=== PATIENT | female | born 1945 | race Caucasian/White ===

== ENCOUNTER → 2016-05-20 | Outpatient (CLI) | payer MEDICARE, BC ==
--- NOTE | 2016-05-20 19:10 | RADRPT ---
PROCEDURE: Right knee radiographs. CLINICAL INDICATION: Right knee pain. TECHNIQUE: Three views. Weight bearing. Frontal, lateral, and patellar view. COMPARISON: No prior studies are available for comparison. FINDINGS: There is no fracture or dislocation. There is anterior soft tissue swelling. There is no joint effusion. The articular surfaces are intact. There is no lytic or blastic lesion. There is no radiopaque foreign body. IMPRESSION: 1. Anterior soft tissue swelling. 2. No joint effusion. 3. Otherwise normal images of the right knee. RPTAT: QQ .Iglesia Chavez MD, Date Time Electronically viewed and signed by .Iglesia Chavez MD, on 05/20/2016 19:10 .R/
--- NOTE | 2016-05-25 07:13 | HKNOTE ---
DATE OF SERVICE: 05/20/2016 REFERRING PHYSICIAN: Dr. Chetan Redd, [address], [address], [place] [address]. MAIN COMPLAINT: Pain in the right knee. HISTORY OF MAIN COMPLAINT: The patient is a 71-year-old female complains of pain in her right knee which started after she slipped on a slippery surface in [facility] about 4 weeks ago. She was able to get up and walk, but she had pain and swelling in the knee. For a few days after the fall, she actually got a little bit worse and since then, she has improved. At first, she is not able to bear full weight on the leg. PRESENT COMPLAINTS: Right knee: Pain is over the lateral aspect of the right knee. Pain is descri bed as being moderate but seems to be getting better. Pain is aggravated by walking, weightbearing and stair climbing. The knee feels as if it won't straighten all the way but is not unstable and do es not lock. She does get rest pain and night pain. She takes Advil for the pain. Her main relief is just simply by not putting weight on her leg. She does have a history of problems with her lowe r back. She has no numbness or tingling in her legs. She walks without a walking aid. She is not limping at present; however, she was limping at first. Her leg lengths are equal. She does not hav e a shoe lift. She can clip her toenails and tie her shoelaces. SPORTING ACTIVITIES: Normally walking and dancing (especially dancing). PAST ORTHOPEDIC HISTORY: None. PREVIOUS ORTHOPEDIC OPERATIONS: None. PRIOR CORTISONE INTAKE: None. ALCOHOL INTAKE: None. OTHER JOINT PROBLEMS: None. BLOOD TEST FOR ARTHRITIS: None. PRIOR INJURIES TO HIPS OR KNEES: None. WORK STATUS: Patient is retired. PAST MEDICAL HISTORY: 1. Hypothyroid. 2. Hypercholesterolemia. 3. Osteoporosis. PAST SURGICAL HISTORY: Negative. ALLERGIES: NONE. MEDICATIONS 1. Synthroid 0.05 mcg per day. 2. Lovastatin 20 mg once a day. 3. Calcium with vitamin D once a day. FAMILY HISTORY: Both parents of cancer at unstated ages. SYSTEMS REVIEW: Prone to skipping heartbeats, excess night urination, and chronic diarrhea. Note t hat the patient has checked off diabetes on the systems review but not on the past medical history. She is not taking any medications for diabetes. HABITS: The patient does not smoke or drink alcoholic beverages. FILTER TIP CATCHER: Dr. Chetan Redd, [address], [address], [place], [place]. PHYSICAL EXAMINATION GENERAL: The patient is a remarkably fit and youthful 71-year-old female. She walks without a walk ing aid. Her gait is normal. VITAL SIGNS: Height 5 feet 2 inches, weight 117 pounds. Blood pressure 175/75, temperature 98.0. HIPS: Both hips have a full range of motion. There is no tenderness anywhere around either hip hector nt. EXTREMITIES: Normal right knee examination modifies as follows: 1+ effusion, tender over the later al joint line. Pain on forced extension but extension is full. History of normal left knee examination. IMAGING: Plain x-rays of the right knee obtained today at the [facility] were re viewed by me. three views these showed mild osteoporosis. Minimal joint narrowing on t he medial side. No subchondral sclerosis or osteophytes. DISCUSSION: An extremely fit 71-year-old female whose main passion is dancing, who took a slip in [facility] on a wet surface about a month ago. At first, the knee was so painful she could barely bear weight on the knee. It was also swollen. Her symptoms appear to be improving, but she continues with some pain. Physical examination shows a small effusion to be present and tenderness along the lateral joint line. The x-rays are noncontributory. Dictated By: BHUPENDRA SNIDER/ELIGIO Conf#: [id number] DID#: [id number]
== END | disposition home or self-care (01) ==
LOC: HKI 14:34
DX: M25.561 Pain in right knee (principal); M81.0 Age-related osteoporosis without current pathological fracture
CPT/HCPCS: 73562; G0463

== ENCOUNTER → 2016-06-02 | Outpatient (CLI) | payer MEDICARE, BC ==
--- NOTE | 2016-06-16 07:19 | HKNOTE ---
DATE OF SERVICE: 06/02/2016 Patient comes in today to discuss her MRI scan and to discuss various topics related to her right kn ee. The MRI scan of the right knee obtained on 05/25/2016 is reported as showing "a tear of the posterio r horn and mid zone of the medial meniscus with prominent oblique component of a blunted inner free edge. A grade II signal in the posterior horn of the lateral meniscus. Chronic proximal MCL sprain . No ____changes. Clinical concern of IT band friction syndrome. Patient indicates that her knee is improved since she last saw me. However, she continues to get pa in and instability of the knee if she does not walk in a straight line on a level surface. Any atte mpt at turning from one side to the other causes her knee to have "a stab in the knee with pain and the knee catches." The knee also seems to lock when she gets in and out of a car. When she gets up from the toilet seat. she has to forcibly internally rotate her knees to give her stability. PHYSICAL EXAMINATION: The patient is in no walking aid. She walks without a limp. Temperature 98. 3. RIGHT KNEE: The right knee shows normal alignment. Active and passive extension is 0 degrees. Activ e and passive flexion is 135 degrees. The medial and lateral collateral ligaments and cruciate ligam ents are intact. Vargas test is negative. There is no effusion, tenderness, scarring, crepitus, or cysts. The patella tracks normally. There is no tenderness on the articular surface of the patella o r in the patellar groove. The Q angle is normal. The right knee shows 1+ effusion, marked tenderness over the medial joint line (the patient indicate s that the pain is over the lateral joint line). MANAGEMENT: The patient is currently taking care of her sister who has terminal cancer. The patien t states that even if she wanted to she "cannot do anything about my knee at this time." She comes in to discuss various activities. I indicated her that if she has a torn meniscus (which the MRI an d symptoms seem to suggest) then it is not an urgent matter. She can perhaps take another month or 2 before deciding to proceed with any intervention. We again discussed the operative arthroscopy and what is entailed. The patient indicates that she w ill continue with her physical therapy program (She has not started it yet, but she has my prescript ion) and she will be seen again in a month's time for reevaluation. Dictated By: BHUPENDRA SNIDER/ELIGIO Conf#: [id number] DID#: [id number]
== END | disposition home or self-care (01) ==
LOC: HKI 13:42
DX: S83.241A Other tear of medial meniscus, current injury, right knee, initial encounter (principal)

== ENCOUNTER → 2016-07-08 | Outpatient (CLI) | payer MEDICARE, BC ==
--- NOTE | 2016-07-08 18:58 | HKNOTE ---
DATE OF SERVICE: 07/08/2016 The patient comes in for a recheck on her right knee. She also wanted to review the MRI findings an d see how that squares with her symptoms. She continues to have problems with the knee. If she walks in a straight line she has no problems. If she attempts to turn left or right the knee gets a sudden sharp pain and she can feel "something moving around in there." Other than that, she appears to be progressing well. She is still not ab le to have an arthroscopic operation even if she needed it at this time. The patient is taking care of her sister. PHYSICAL EXAMINATION: VITAL SIGNS: Temperature is 98.0, blood pressure ____/55. RIGHT KNEE: The right knee shows normal alignment. Active and passive extension is 0 degrees. Activ e and passive flexion is 135 degrees. Forward flexion causes some mild pain ____. The medial and la teral collateral ligaments and cruciate ligaments are intact. Vargas test is negative. There is no effusion, tenderness, scarring, crepitus, or cysts. The patella tracks normally. There is no tendern ess on the articular surface of the patella or in the patellar groove. The Q angle is normal. The patient's MRI scan of her knee was reviewed with her. She is deeply concerned because the MRI i ndicates that there is a torn medial meniscus but most severe pain is on the lateral aspect of the k nee. The patient was advised that in my opinion she has actually improved since I saw her last time, joser e she was already improved since the time before that. The patient is highly reluctant to have any surgery on her knee. She was advised that leaving this problem unattended may cause further extension of the tear in the meniscus. Certainly she sounds as though she is still having the classic symptoms of a torn meniscus. The patient would like to wait "until July when maybe there will be a change in my sister's situation." Note that this patient asked endless questions and which she completed her list of questions she sta rted over at the beginning again. Essentially most of the questions were asked and answered at her last visit. Even after completing my visit with her she followed me down the corridor asking more q uestions which were basically a rehash of the same questions. PROBABLY I SHOULD REFER THIS PATIENT TO ANOTHER SURGEON BECAUSE SHE IS GOING TO BE NOTHING BUT TROUB LE. Dictated By: BHUPENDRA SNIDER/ELIGIO Conf#: [id number] DID#: [id number]
--- NOTE | 2016-07-08 19:05 | HKNOTE ---
DATE OF SERVICE: 07/08/2016 Dr. Benton, The patient, Caro Luz, has been seen in my office twice since my last communication of 05/21/19 17. She had an MRI scan of her right knee on 05/25/2016. The MRI was reported by Dr. Benton as showing "te ar of the posterior horn and mid zone of the medial meniscus with prominent oblique component and a blunted inner free edge. Low-grade degenerative changes." I advised her that she will need to have an arthroscopic operation on the knee. However, she is kvng ing care of a fragile and ailing sister, and she is not able to take time off to have the surgery. Today was the second visit since my letter to you. In general, she appears to have improved somewha t and the knee is completely normal clinically. She does, however, continue to have catching and pa in in the knee if she turns from the side to another with the right foot planted on the ground. She was reassured that she will definitely need to have the surgery sooner or later. She will call my office when she wishes to proceed. She is a woman who asked many questions and I had to spend time with her rehashing the same question s and answers that we went over at her last visit. Enclosed is a copy of the MRI scan for your records. Thank you for your confidence in referring her to my care. I will keep you informed of further deve lopments. With warmest regards, Dictated By: BHUPENDRA SNIDER/ELIGIO Conf#: [id number] DID#: [id number] CC: Chetan Redd MD;*EndCC*
== END | disposition home or self-care (01) ==
LOC: HKI 13:42
DX: S83.241A Other tear of medial meniscus, current injury, right knee, initial encounter (principal); X58.XXXA Exposure to other specified factors, initial encounter; M25.561 Pain in right knee
CPT/HCPCS: G0463